=== PATIENT | male | born 1980 | race Caucasian/White ===

== ENCOUNTER 2017-12-05 21:29 | Emergency (ER) | payer MEDICAID ==
[~2017-12-05] VITALS: Ht 172.7 cm; Wt 62.1 kg
[~2017-12-05 21:29] MED LIST: ALPR-624 PO; OMEP40CA37 PO; ONDA4TAB6 PO
[2017-12-05 21:47] VITALS: BP 115/79
[2017-12-05] MEDS ORDERED: CYCL-1 PO (23:35)
[2017-12-05] MEDS ORDERED: ketorolac trometh inj. 60 MG/2 ML VIAL IM ONE (23:45)
== END 2017-12-05 23:49 | disposition home or self-care (01) ==
LOC: ER 21:30
DX: S39.012A Strain of muscle, fascia and tendon of lower back, initial encounter (principal); K21.9 Gastro-esophageal reflux disease without esophagitis; Z88.6 Allergy status to analgesic agent; Z88.5 Allergy status to narcotic agent; Z79.899 Other long term (current) drug therapy; W10.9XXA Fall (on) (from) unspecified stairs and steps, initial encounter; Y93.89 Activity, other specified; Y92.89 Other specified places as the place of occurrence of the external cause; Y99.8 Other external cause status
CPT/HCPCS: 96372; 99283; J1885

== ENCOUNTER 2018-02-01 23:09 | Emergency (ER) | payer MEDICAID ==
[~2018-02-01] VITALS: Ht 175.3 cm; Wt 60.9 kg
[~2018-02-01 23:09] MED LIST changes: +CYCL-1 PO
[2018-02-01 23:31] VITALS: BP 117/81
[2018-02-02] MEDS ORDERED: acetaminophen 325mg tablet PO ONE (00:55)
[2018-02-02] MEDS ORDERED: HYDR-569 PO (00:56)
== END 2018-02-02 01:10 | disposition home or self-care (01) ==
LOC: ER 23:11
DX: S63.650A Sprain of metacarpophalangeal joint of right index finger, initial encounter (principal); W19.XXXA Unspecified fall, initial encounter; Y93.89 Activity, other specified; Y92.89 Other specified places as the place of occurrence of the external cause; Y99.8 Other external cause status
CPT/HCPCS: 29130; 73140; 99284

== ENCOUNTER 2018-07-20 13:16 | Emergency (ER) | payer MEDICAID ==
[~2018-07-20] VITALS: Ht 175.3 cm; Wt 65.5 kg
[~2018-07-20 13:16] MED LIST changes: +HYDR-4383 PO
[2018-07-20 13:27] VITALS: BP 118/76
[2018-07-20] MEDS ORDERED: acetaminophen 325mg tablet PO ONE (14:00)
== END 2018-07-20 14:22 | disposition home or self-care (01) ==
LOC: ER 13:16
DX: S01.512A Laceration without foreign body of oral cavity, initial encounter (principal); K21.9 Gastro-esophageal reflux disease without esophagitis; Z88.5 Allergy status to narcotic agent; Z79.899 Other long term (current) drug therapy; X58.XXXA Exposure to other specified factors, initial encounter; Y93.89 Activity, other specified; Y92.89 Other specified places as the place of occurrence of the external cause; Y99.9 Unspecified external cause status
CPT/HCPCS: 99282

== ENCOUNTER 2019-07-04 08:10 | Day surgery (SDC) | payer MEDICAID ==
[2019-06-28 15:33] LABS: BASOPHILS % (AUTO) 0.5 % (0-1); EOSINOPHILS # (AUTO) 0.1 X10'3 (0-0.9); EOSINOPHILS % (AUTO) 1.2 % (0-6); LYMPHOCYTES % (AUTO) 39.6 % (21-51); MEAN CORPUSCULAR HEMOGLOBIN 28.1 PG (27.0-31.0); MEAN CORPUSCULAR HGB CONC 33.5 g/dL (33.0-36.5); MONOCYTES # (AUTO) 0.4 X10'3 (0-0.9); MONOCYTES % (AUTO) 8.6 % (2-12); NEUTROPHILS # (AUTO) 2.5 X10'3 (1.8-7.7); NEUTROPHILS % (AUTO) 50.1 % (42-75); PRE OP HEMATOCRIT 43.1 % (42.0-52.0); PRE OP HEMOGLOBIN 14.4 g/dL (14.0-17.9); PRE OP PLATELET COUNT 341 X10'3 (140-440); RED BLOOD COUNT 5.13 X10'6 (4.70-6.10); RED CELL DISTRIBUTION WIDTH 13.5 % (11.5-14.5)
[2019-06-28 15:55] LABS: ALBUMIN 4.3 G/DL (3.4-5.0); ALKALINE PHOSPHATASE 67 IU/L (46-116); BLOOD UREA NITROGEN 9 MG/DL (7-18); BUN/CREATININE RATIO 10.2 (5.4-32.0); CALCIUM 9.5 MG/DL (8.5-10.1); CHLORIDE 102 MMOL/L (99-107); CREATININE 0.88 MG/DL (0.60-1.10); PRE OP ALT 18 U/L (30-65); PRE OP ANION GAP 8 (8-16); PRE OP AST 14 U/L (10-37); PRE OP BILIRUB, TOTAL 1.2 MG/DL (0.0-1.0); PRE OP GLUCOSE 91 MG/DL (70-104); PRE OP POTASSIUM 3.5 MMOL/L (3.4-5.1); PRE OP SODIUM 140 MMOL/L (135-145); TOTAL PROTEIN 8.7 G/DL (6.4-8.2); eGFR > 90 ML/MIN
[2019-07-04] VITALS (15 sets, daily range): BP systolic 110–125; BP diastolic 60–89
[~2019-07-04] VITALS: Ht 172.7 cm; Wt 62.0 kg
[~2019-07-04 08:10] MED LIST changes: -ALPR-624 PO; +BUPIVAcaine/PF 2.5mg/ml (0.25%) 10ml vial ONE; -CYCL-1 PO; +FLUO-1 PO; -HYDR-4383 PO; -OMEP40CA37 PO; -ONDA4TAB6 PO; +RANI150T8 PO; +ceFAZolin/D5W- 1GM premix 50 ML IV ONE; +famotidine 10mg tablet PO ONE; +ringers solution, lacted 1,000 ML IV SCH
[2019-07-04] MEDS ORDERED: LIDOcaine 0.5% (5mg/ml) 50ml vial ONE (10:29)
[2019-07-04] MEDS ORDERED: midazolam 2 mg/2 ml injection ONE (10:30)
[2019-07-04] MEDS ORDERED: fentaNYL/PF 50MCG/1 ML 2ML syringe ONE ×2 (10:30→10:45)
[2019-07-04] MEDS ORDERED: ceFAZolin 1000mg inj ONE (10:54)
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
== END 2019-07-04 13:18 | disposition home or self-care (01) ==
LOC: PAS 08:10
PROVIDERS: ATTEND Orthopaedic Surgery Hand Surgery
DX: M25.341 Other instability, right hand (principal); F41.9 Anxiety disorder, unspecified; Z98.890 Other specified postprocedural states; Z87.442 Personal history of urinary calculi; Z88.5 Allergy status to narcotic agent; Z79.899 Other long term (current) drug therapy
CPT/HCPCS: 26437; 26520; 36415; 80053; 82948; 85025; J0690; J2001; J2250; J3010; J3490; A4215; J7120

== ENCOUNTER 2019-12-11 09:51 | Emergency (ER) | payer MEDICAID ==
[~2019-12-11] VITALS: Ht 177.8 cm; Wt 62.7 kg
[~2019-12-11 09:51] MED LIST changes: -BUPIVAcaine/PF 2.5mg/ml (0.25%) 10ml vial ONE; -ceFAZolin/D5W- 1GM premix 50 ML IV ONE; -famotidine 10mg tablet PO ONE; -ringers solution, lacted 1,000 ML IV SCH
[2019-12-11] MEDS ORDERED: morphine 4 MG/ML inj SYRINge IV ONE (10:15)
[2019-12-11] MEDS ORDERED: normal saline 1000ML IV soln IVB ONE (10:15)
[2019-12-11] MEDS ORDERED: ondansetron/PF 4mg/2ml inj IV ONE (10:15)
[2019-12-11] MEDS ORDERED: iohexol 300mg/ml 100ml inj. ONE (10:21)
[2019-12-11 10:41] LABS: BASOPHILS % (AUTO) 0.5 % (0-1); EOSINOPHILS # (AUTO) 0.2 X10'3 (0-0.9); HEMATOCRIT 43.3 % (42.0-52.0); HEMOGLOBIN 14.4 g/dl (14.0-17.9); LYMPHOCYTES # (AUTO) 2.2 X10'3 (1.1-4.8); LYMPHOCYTES % (AUTO) 38.4 % (21-51); MEAN CORPUSCULAR HEMOGLOBIN 27.9 PG (27.0-31.0); MEAN CORPUSCULAR HGB CONC 33.4 g/dL (33.0-36.5); MEAN CORPUSCULAR VOLUME 83.6 FL (78-98); MEAN PLATELET VOLUME 7.6 FL (7.4-10.4); MONOCYTES # (AUTO) 0.4 X10'3 (0-0.9); MONOCYTES % (AUTO) 7.8 % (2-12); NEUTROPHILS # (AUTO) 2.8 X10'3 (1.8-7.7); NEUTROPHILS % (AUTO) 50.3 % (42-75); PLATELET COUNT 297 X10'3 (140-440); RED BLOOD COUNT 5.18 X10'6 (4.70-6.10); RED CELL DISTRIBUTION WIDTH 14.1 % (11.5-14.5); WHITE BLOOD COUNT 5.6 X10'3 (4.5-11.0)
[2019-12-11 10:50] LABS: PARTIAL THROMBOPLASTIN TIME 24 SECONDS (22-32)
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
[2019-12-11 10:54] LABS: ALANINE AMINOTRANSFERASE 10 U/L (12-78); ALKALINE PHOSPHATASE 66 IU/L (46-116); ANION GAP 9 (8-16); ASPARTATE AMINO TRANSFERASE 14 U/L (10-37); BILIRUBIN,TOTAL 1.5 MG/DL (0.1-1.0); BLOOD UREA NITROGEN 14 MG/DL (7-18); BUN/CREATININE RATIO 12.4 (5.4-32.0); CALCIUM 9.2 MG/DL (8.5-10.1); CHLORIDE 104 MMOL/L (99-107); CREATININE 1.13 MG/DL (0.60-1.10); GLUCOSE 115 MG/DL (70-104); POTASSIUM 3.6 MMOL/L (3.5-5.1); SODIUM 141 MMOL/L (135-145); TOTAL CARBON DIOXIDE 27.8 MMOL/L (24-32); TOTAL PROTEIN 8.2 G/DL (6.4-8.2); eGFR 72 ML/MIN
[2019-12-11] MEDS ORDERED: ketorolac trometh. 30mg/ml inj. IV ONE (11:15)
[2019-12-11 11:33] LABS: CLARITY,URINE SLIGHTLY CLOUDY (Clear); COLOR,URINE YELLOW (Yellow); GLUCOSE, URINE NEGATIVE (Neg); KETONES,URINE NEGATIVE (Neg); LEUKOCYTE ESTERASE ,URINE NEGATIVE (Neg); NITRITES, URINE NEGATIVE (Neg); OCCULT BLOOD,URINE LARGE (Neg); PROTEIN,URINE TRACE mg/dl (Neg)
[2019-12-11 11:37] LABS: UA COLLECTION TYPE URINAL
[2019-12-11 11:41] LABS: MUCUS STRANDS MANY /LPF (Neg)
[2019-12-11 11:43] LABS: SQUAMOUS EPITHELIAL CELL,UR FEW /LPF (FEW)
[2019-12-11 11:45] LABS: RBC,URINE TNTC /HPF (0-2)
[2019-12-11 11:47] LABS: BACTERIA,URINE FEW /HPF (Neg); CAL OXALATE CRYSTALS FEW /HPF (NEGATIVE)
[2019-12-11] MEDS ORDERED: FLO0.4C PO (12:04)
[2019-12-11] MEDS ORDERED: ONDA4TAB6 PO (12:04)
[2019-12-11] MEDS ORDERED: IBUP-1984 PO (12:04)
[2019-12-11] MEDS ORDERED: DOXY-135 PO (12:04)
[2019-12-11] MEDS ORDERED: HYDR-4353 PO (12:06)
[2019-12-11 13:04] VITALS: BP 116/73
== END 2019-12-11 13:08 | disposition home or self-care (01) ==
LOC: ER 09:52
DX: N20.0 Calculus of kidney (principal); N39.0 Urinary tract infection, site not specified; R11.10 Vomiting, unspecified; K21.9 Gastro-esophageal reflux disease without esophagitis; F41.9 Anxiety disorder, unspecified; Z88.5 Allergy status to narcotic agent; Z79.899 Other long term (current) drug therapy
CPT/HCPCS: 36415; 74177; 80053; 81001; 85025; 85610; 85730; 87088; 96361; 96374; 96375; 99285; J1885; J2270; J2405; J7030; Q9967

== ENCOUNTER 2020-11-29 03:45 | Emergency (ER) | payer MEDICAID ==
[~2020-11-29] VITALS: Ht 175.3 cm; Wt 64.1 kg
[~2020-11-29 03:45] MED LIST changes: +ONDA4TAB6 PO
[2020-11-29] MEDS ORDERED: ketorolac trometh. 30mg/ml inj. IV ONE (04:05)
[2020-11-29] MEDS ORDERED: ondansetron/PF 4mg/2ml inj IV ONE (04:05)
[2020-11-29 04:12] LABS: BASOPHILS % (AUTO) 0.5 % (0-1); EOSINOPHILS # (AUTO) 0.2 X10'3 (0-0.9); EOSINOPHILS % (AUTO) 3.1 % (0-6); HEMATOCRIT 42.9 % (42.0-52.0); HEMOGLOBIN 14.3 g/dl (14.0-17.9); LYMPHOCYTES # (AUTO) 3.3 X10'3 (1.1-4.8); LYMPHOCYTES % (AUTO) 51.2 % (21-51); MEAN CORPUSCULAR HEMOGLOBIN 28.3 PG (27.0-31.0); MEAN CORPUSCULAR HGB CONC 33.2 g/dL (33.0-36.5); MEAN PLATELET VOLUME 7.7 FL (7.4-10.4); MONOCYTES # (AUTO) 0.7 X10'3 (0-0.9); MONOCYTES % (AUTO) 10.2 % (2-12); NEUTROPHILS # (AUTO) 2.3 X10'3 (1.8-7.7); PLATELET COUNT 287 X10'3 (140-440); RED BLOOD COUNT 5.05 X10'6 (4.70-6.10); RED CELL DISTRIBUTION WIDTH 13.6 % (11.5-14.5); WHITE BLOOD COUNT 6.5 X10'3 (4.5-11.0)
[2020-11-29 04:22] LABS: ALANINE AMINOTRANSFERASE 14 U/L (12-78); ALBUMIN 3.7 G/DL (3.4-5.0); ALBUMIN/GLOBULIN RATIO 0.9 (1.1-1.5); ALKALINE PHOSPHATASE 62 IU/L (46-116); ANION GAP 10 (8-16); ASPARTATE AMINO TRANSFERASE 16 U/L (10-37); BILIRUBIN,TOTAL 1.2 MG/DL (0.1-1.0); BLOOD UREA NITROGEN 19 MG/DL (7-18); BUN/CREATININE RATIO 17.9 (5.4-32.0); CALCIUM 8.8 MG/DL (8.5-10.1); CHLORIDE 105 MMOL/L (99-107); CREATININE 1.06 MG/DL (0.60-1.10); GLUCOSE 110 MG/DL (70-104); LIPASE 111 U/L (73-393); POTASSIUM 3.7 MMOL/L (3.5-5.1); SODIUM 142 MMOL/L (135-145); TOTAL CARBON DIOXIDE 26.8 MMOL/L (24-32); TOTAL PROTEIN 7.9 G/DL (6.4-8.2); eGFR 77 ML/MIN
[2020-11-29 05:08] VITALS: BP 129/81
[2020-11-29 05:25] LABS: TOTAL CELLS COUNTED 100
[2020-11-29 05:26] LABS: PLATELET ESTIMATE NORMAL
[2020-11-29] MEDS ORDERED: ONDA4TAB6 PO (05:31)
[2020-11-29] MEDS ORDERED: MELO-100 PO (05:31)
[2020-11-29] MEDS ORDERED: FLO0.4C PO (05:31)
[2020-11-29] MEDS ORDERED: HYDR-3965 PO (05:31)
[2020-11-29 06:15] LABS: CLARITY,URINE CLOUDY (Clear); COLOR,URINE YELLOW (Yellow); GLUCOSE, URINE NEGATIVE (Neg); KETONES,URINE NEGATIVE (Neg); LEUKOCYTE ESTERASE ,URINE NEGATIVE (Neg); NITRITES, URINE NEGATIVE (Neg); OCCULT BLOOD,URINE LARGE (Neg); PH,URINE 5.5 (4.8-8.0); PROTEIN,URINE 100 mg/dl (Neg)
[2020-11-29 06:16] LABS: UA COLLECTION TYPE URINAL
[2020-11-29 06:24] LABS: BACTERIA,URINE FEW /HPF (Neg); MUCUS STRANDS FEW /LPF (Neg); RBC,URINE TNTC /HPF (0-2); SQUAMOUS EPITHELIAL CELL,UR FEW /LPF (FEW)
== END 2020-11-29 06:16 | disposition home or self-care (01) ==
LOC: ER 03:46
DX: N20.0 Calculus of kidney (principal); R10.32 Left lower quadrant pain; K21.9 Gastro-esophageal reflux disease without esophagitis; F41.9 Anxiety disorder, unspecified; Z87.442 Personal history of urinary calculi; Z98.890 Other specified postprocedural states; Z88.8 Allergy status to other drugs, medicaments and biological substances; Z79.899 Other long term (current) drug therapy
CPT/HCPCS: 36415; 74176; 80053; 81001; 83690; 85007; 85025; 87088; 96374; 96375; 99284; J1885; J2405

== ENCOUNTER 2020-11-30 12:43 | Emergency (ER) | payer MEDICAID ==
[~2020-11-30 12:43] MED LIST changes: +FLO0.4C PO; +HYDR-3965 PO; +MELO-100 PO
--- NOTE | 2020-11-30 13:40 | NUR ---
PER REGISTRATION PT LEFT BEFORE TRIAGE.
== END 2020-11-30 17:13 | disposition left against medical advice (07) ==
LOC: ER 12:43
DX: Z53.21 Procedure and treatment not carried out due to patient leaving prior to being seen by health care provider (principal)

== ENCOUNTER 2021-01-19 15:12 | Emergency (ER) | payer MEDICAID ==
[~2021-01-19] VITALS: Ht 175.3 cm; Wt 63.4 kg
[~2021-01-19 15:12] MED LIST changes: -FLO0.4C PO; -HYDR-3965 PO
[2021-01-19 15:56] LABS: CLARITY,URINE CLOUDY (Clear); COLOR,URINE YELLOW (Yellow); GLUCOSE, URINE NEGATIVE (Neg); KETONES,URINE NEGATIVE (Neg); LEUKOCYTE ESTERASE ,URINE NEGATIVE (Neg); NITRITES, URINE NEGATIVE (Neg); OCCULT BLOOD,URINE NEGATIVE (Neg); PROTEIN,URINE NEGATIVE (Neg); UROBILINOGEN,URINE 0.2 E.U/dL (0.2-1.0)
[2021-01-19 16:00] LABS: UA COLLECTION TYPE NON-SPECIFIED
[2021-01-19 16:03] LABS: BASOPHILS % (AUTO) 0.4 % (0-1); EOSINOPHILS % (AUTO) 0.9 % (0-6); HEMATOCRIT 44.7 % (42.0-52.0); HEMOGLOBIN 15.1 g/dl (14.0-17.9); LYMPHOCYTES # (AUTO) 1.7 X10'3 (1.1-4.8); MEAN CORPUSCULAR HEMOGLOBIN 28.2 PG (27.0-31.0); MEAN CORPUSCULAR HGB CONC 33.7 g/dL (33.0-36.5); MEAN CORPUSCULAR VOLUME 83.6 FL (78-98); MEAN PLATELET VOLUME 7.9 FL (7.4-10.4); MONOCYTES # (AUTO) 0.5 X10'3 (0-0.9); MONOCYTES % (AUTO) 9.8 % (2-12); NEUTROPHILS # (AUTO) 2.8 X10'3 (1.8-7.7); NEUTROPHILS % (AUTO) 54.9 % (42-75); PLATELET COUNT 321 X10'3 (140-440); RED BLOOD COUNT 5.35 X10'6 (4.70-6.10); RED CELL DISTRIBUTION WIDTH 13.5 % (11.5-14.5); WHITE BLOOD COUNT 5.1 X10'3 (4.5-11.0)
[2021-01-19 16:04] LABS: AMORPHOUS PHOSPHATES 3+; SQUAMOUS EPITHELIAL CELL,UR FEW /LPF (FEW)
[2021-01-19 16:04] LABS: ANION GAP 8 (8-16); BLOOD UREA NITROGEN 9 MG/DL (7-18); BUN/CREATININE RATIO 8.7 (5.4-32.0); CALCIUM 9.1 MG/DL (8.5-10.1); CHLORIDE 103 MMOL/L (99-107); CREATININE 1.03 MG/DL (0.60-1.10); GLUCOSE 93 MG/DL (70-104); SODIUM 140 MMOL/L (135-145); eGFR 80 ML/MIN
[2021-01-19 16:06] LABS: BACTERIA,URINE NONE SEEN /HPF (Neg); RBC,URINE NONE SEEN /HPF (0-2); WBC,URINE 0-4 /HPF (0-4)
[2021-01-19] MEDS ORDERED: ketorolac tromethamine 15mg/ml inj. IM ONE (17:10)
--- NOTE | 2021-01-19 17:11 | NUR ---
received patient in bed 2.
[2021-01-19] MEDS ORDERED: FLO0.4C PO (17:19)
[2021-01-19] MEDS ORDERED: IBUP-1986 PO (17:19)
[2021-01-19] MEDS ORDERED: OXYC-145 PO (17:19)
[2021-01-19 17:29] VITALS: BP 108/77
== END 2021-01-19 17:50 | disposition home or self-care (01) ==
LOC: ER 15:14
DX: N20.0 Calculus of kidney (principal); F41.9 Anxiety disorder, unspecified; Z88.5 Allergy status to narcotic agent; Z79.899 Other long term (current) drug therapy
CPT/HCPCS: 36415; 74176; 80048; 81001; 85025; 93005; 96372; 99285; J1885

== ENCOUNTER 2021-05-09 20:25 | Emergency (ER) | payer MEDICAID ==
[~2021-05-09] VITALS: Ht 175.3 cm; Wt 65.9 kg
[~2021-05-09 20:25] MED LIST changes: +IBUP-1986 PO; +OXYC-145 PO
[2021-05-09 21:00] LABS: BASOPHILS # (AUTO) 0.1 X10'3 (0-0.2); BASOPHILS % (AUTO) 0.8 % (0-1); EOSINOPHILS # (AUTO) 0.2 X10'3 (0-0.9); EOSINOPHILS % (AUTO) 2.2 % (0-6); HEMATOCRIT 44.9 % (42.0-52.0); HEMOGLOBIN 15.1 g/dl (14.0-17.9); LYMPHOCYTES # (AUTO) 2.8 X10'3 (1.1-4.8); LYMPHOCYTES % (AUTO) 38.5 % (21-51); MEAN CORPUSCULAR HEMOGLOBIN 28.4 PG (27.0-31.0); MEAN CORPUSCULAR HGB CONC 33.7 g/dL (33.0-36.5); MEAN CORPUSCULAR VOLUME 84.3 FL (78-98); MEAN PLATELET VOLUME 7.5 FL (7.4-10.4); MONOCYTES # (AUTO) 0.6 X10'3 (0-0.9); MONOCYTES % (AUTO) 8.6 % (2-12); NEUTROPHILS # (AUTO) 3.6 X10'3 (1.8-7.7); NEUTROPHILS % (AUTO) 49.9 % (42-75); PLATELET COUNT 333 X10'3 (140-440); RED BLOOD COUNT 5.33 X10'6 (4.70-6.10); RED CELL DISTRIBUTION WIDTH 13.4 % (11.5-14.5); WHITE BLOOD COUNT 7.3 X10'3 (4.5-11.0)
[2021-05-09 21:03] LABS: UA COLLECTION TYPE CLN CATCH MIDSTREAM
[2021-05-09 21:04] LABS: CLARITY,URINE CLEAR (Clear); COLOR,URINE YELLOW (Yellow); GLUCOSE, URINE NEGATIVE (Neg); KETONES,URINE NEGATIVE (Neg); LEUKOCYTE ESTERASE ,URINE NEGATIVE (Neg); NITRITES, URINE NEGATIVE (Neg); OCCULT BLOOD,URINE NEGATIVE (Neg); PROTEIN,URINE NEGATIVE (Neg); UROBILINOGEN,URINE 0.2 E.U/dL (0.2-1.0)
[2021-05-09 21:20] LABS: ALANINE AMINOTRANSFERASE 17 U/L (12-78); ALBUMIN 4.1 G/DL (3.4-5.0); ALBUMIN/GLOBULIN RATIO 0.9 (1.1-1.5); ALKALINE PHOSPHATASE 58 IU/L (46-116); ANION GAP 9 (8-16); ASPARTATE AMINO TRANSFERASE 15 U/L (10-37); BILIRUBIN,TOTAL 1.7 MG/DL (0.1-1.0); BLOOD UREA NITROGEN 17 MG/DL (7-18); BUN/CREATININE RATIO 16.3 (5.4-32.0); CALCIUM 9.4 MG/DL (8.5-10.1); CHLORIDE 103 MMOL/L (99-107); CREATININE 1.04 MG/DL (0.60-1.10); GLUCOSE 86 MG/DL (70-104); LIPASE 125 U/L (73-393); POTASSIUM 3.3 MMOL/L (3.5-5.1); SODIUM 140 MMOL/L (135-145); TOTAL CARBON DIOXIDE 28.3 MMOL/L (24-32); TOTAL PROTEIN 8.9 G/DL (6.4-8.2); eGFR 79 ML/MIN
[2021-05-09] MEDS ORDERED: ondansetron 4mg rapidly disintigrating tab PO ONE (23:25)
[2021-05-09] MEDS ORDERED: ketorolac trometh. 30mg/ml inj. IM ONE (23:25)
[2021-05-09] MEDS ORDERED: acetaminophen 325mg tablet PO ONE (23:25)
[2021-05-09 23:56] LABS: TROPONIN I < 0.04 NG/ML (0.0-0.05)
[2021-05-10] MEDS ORDERED: DICY10CA88 PO (01:34)
[2021-05-10] MEDS ORDERED: FAMO-128 PO (01:34)
[2021-05-10 01:45] VITALS: BP 112/82
== END 2021-05-10 01:43 | disposition home or self-care (01) ==
LOC: ER 20:26
DX: R10.32 Left lower quadrant pain (principal); F41.9 Anxiety disorder, unspecified; R07.89 Other chest pain; R42 Dizziness and giddiness; R11.10 Vomiting, unspecified; K21.9 Gastro-esophageal reflux disease without esophagitis; Z87.442 Personal history of urinary calculi; Z98.890 Other specified postprocedural states; Z88.8 Allergy status to other drugs, medicaments and biological substances; Z79.899 Other long term (current) drug therapy
CPT/HCPCS: 36415; 80053; 81003; 83690; 84484; 85025; 96372; 99283; J1885

== ENCOUNTER 2022-06-09 14:19 | Emergency (ER) | payer MEDICAID ==
[~2022-06-09] VITALS: Ht 175.3 cm; Wt 62.4 kg
[~2022-06-09 14:19] MED LIST changes: +DICY10CA88 PO; +FAMO-128 PO
[2022-06-09 14:58] VITALS: BP 133/81
[2022-06-09 15:42] LABS: BASOPHILS % (AUTO) 0.4 % (0-1); EOSINOPHILS # (AUTO) 0.1 X10'3 (0-0.9); EOSINOPHILS % (AUTO) 1.1 % (0-6); HEMATOCRIT 43.6 % (42.0-52.0); HEMOGLOBIN 14.7 g/dl (14.0-17.9); LYMPHOCYTES # (AUTO) 1.9 X10'3 (1.1-4.8); LYMPHOCYTES % (AUTO) 29.2 % (21-51); MEAN CORPUSCULAR HEMOGLOBIN 28.3 PG (27.0-31.0); MEAN CORPUSCULAR HGB CONC 33.7 g/dL (33.0-36.5); MEAN CORPUSCULAR VOLUME 84.1 FL (78-98); MEAN PLATELET VOLUME 7.5 FL (7.4-10.4); MONOCYTES # (AUTO) 0.6 X10'3 (0-0.9); NEUTROPHILS % (AUTO) 60.3 % (42-75); PLATELET COUNT 315 X10'3 (140-440); RED BLOOD COUNT 5.18 X10'6 (4.70-6.10); RED CELL DISTRIBUTION WIDTH 13.4 % (11.5-14.5); WHITE BLOOD COUNT 6.6 X10'3 (4.5-11.0)
[2022-06-09 15:45] LABS: CLARITY,URINE CLEAR (Clear); GLUCOSE, URINE NEGATIVE (Neg); KETONES,URINE NEGATIVE (Neg); LEUKOCYTE ESTERASE ,URINE NEGATIVE (Neg); NITRITES, URINE NEGATIVE (Neg); OCCULT BLOOD,URINE TRACE-INTACT (Neg); PROTEIN,URINE NEGATIVE (Neg); UROBILINOGEN,URINE 0.2 E.U/dL (0.2-1.0)
[2022-06-09 15:47] LABS: COLOR,URINE STRAW (Yellow); UA COLLECTION TYPE CLN CATCH MIDSTREAM
[2022-06-09 15:51] LABS: ALANINE AMINOTRANSFERASE 36 U/L (12-78); ALBUMIN 4.1 G/DL (3.4-5.0); ALKALINE PHOSPHATASE 56 IU/L (46-116); ANION GAP 7 (8-16); ASPARTATE AMINO TRANSFERASE 59 U/L (10-37); BILIRUBIN,TOTAL 1.4 MG/DL (0.1-1.0); BLOOD UREA NITROGEN 16 MG/DL (7-18); CALCIUM 9.3 MG/DL (8.5-10.1); CHLORIDE 102 MMOL/L (99-107); CREATININE 0.94 MG/DL (0.60-1.10); GLUCOSE 99 MG/DL (70-104); LIPASE 213 U/L (73-393); SODIUM 139 MMOL/L (135-145); TOTAL CARBON DIOXIDE 29.9 MMOL/L (24-32); TOTAL PROTEIN 8.4 G/DL (6.4-8.2); eGFR 88 ML/MIN
[2022-06-09 15:52] LABS: BACTERIA,URINE NONE SEEN /HPF (Neg); MUCUS STRANDS NONE SEEN /LPF (Neg); RBC,URINE 0-2 /HPF (0-2); SQUAMOUS EPITHELIAL CELL,UR FEW /LPF (FEW); WBC,URINE 0-4 /HPF (0-4)
== END 2022-06-09 19:47 | disposition left against medical advice (07) ==
LOC: ER 14:19
DX: R10.9 Unspecified abdominal pain (principal); Z53.21 Procedure and treatment not carried out due to patient leaving prior to being seen by health care provider
CPT/HCPCS: 36415; 80053; 81001; 83690; 85025

== ENCOUNTER 2022-10-18 02:40 | Emergency (ER) | payer MEDICAID ==
[~2022-10-18] VITALS: Ht 177.8 cm; Wt 67.3 kg
[2022-10-18 03:00] VITALS: BP 135/80
== END 2022-10-18 05:13 | disposition home or self-care (01) ==
LOC: ER 02:40
DX: S60.152A Contusion of left little finger with damage to nail, initial encounter (principal); K21.9 Gastro-esophageal reflux disease without esophagitis; F41.9 Anxiety disorder, unspecified; Z87.442 Personal history of urinary calculi; Z98.890 Other specified postprocedural states; Z79.899 Other long term (current) drug therapy; W22.8XXA Striking against or struck by other objects, initial encounter; Y93.89 Activity, other specified; Y92.89 Other specified places as the place of occurrence of the external cause; Y99.8 Other external cause status
CPT/HCPCS: 73140; 99283

== ENCOUNTER 2022-12-26 16:13 | Emergency (ER) | payer MEDICAID ==
[~2022-12-26] VITALS: Ht 175.3 cm; Wt 64.5 kg
[2022-12-26 16:44] LABS: BASOPHILS % (AUTO) 0.5 % (0-1); EOSINOPHILS # (AUTO) 0.1 X10'3 (0-0.9); EOSINOPHILS % (AUTO) 1.5 % (0-6); HEMATOCRIT 41.3 % (42.0-52.0); HEMOGLOBIN 13.7 g/dl (14.0-17.9); LYMPHOCYTES # (AUTO) 2.3 X10'3 (1.1-4.8); LYMPHOCYTES % (AUTO) 34.7 % (21-51); MEAN CORPUSCULAR HEMOGLOBIN 27.7 PG (27.0-31.0); MEAN CORPUSCULAR HGB CONC 33.2 g/dL (33.0-36.5); MEAN CORPUSCULAR VOLUME 83.6 FL (78-98); MEAN PLATELET VOLUME 7.6 FL (7.4-10.4); MONOCYTES # (AUTO) 0.6 X10'3 (0-0.9); MONOCYTES % (AUTO) 9.7 % (2-12); NEUTROPHILS # (AUTO) 3.6 X10'3 (1.8-7.7); NEUTROPHILS % (AUTO) 53.6 % (42-75); PLATELET COUNT 278 X10'3 (140-440); RED BLOOD COUNT 4.95 X10'6 (4.70-6.10); RED CELL DISTRIBUTION WIDTH 13.5 % (11.5-14.5); WHITE BLOOD COUNT 6.6 X10'3 (4.5-11.0)
[2022-12-26 16:56] LABS: ALANINE AMINOTRANSFERASE 31 U/L (12-78); ALBUMIN 3.9 G/DL (3.4-5.0); ALBUMIN/GLOBULIN RATIO 1.1 (1.1-1.5); ALKALINE PHOSPHATASE 60 IU/L (46-116); ANION GAP 4 (8-16); ASPARTATE AMINO TRANSFERASE 37 U/L (10-37); BILIRUBIN,TOTAL 1.2 MG/DL (0.1-1.0); BLOOD UREA NITROGEN 11 MG/DL (7-18); BUN/CREATININE RATIO 11.6 (10.0-20.0); CALCIUM 8.9 MG/DL (8.5-10.1); CHLORIDE 105 MMOL/L (99-107); CREATININE 0.95 MG/DL (0.60-1.10); GLUCOSE 80 MG/DL (70-104); POTASSIUM 3.7 MMOL/L (3.5-5.1); SODIUM 138 MMOL/L (135-145); TOTAL CARBON DIOXIDE 28.9 MMOL/L (24-32); TOTAL PROTEIN 7.5 G/DL (6.4-8.2); eGFR 87 ML/MIN
[2022-12-26 18:37] VITALS: BP 122/89
== END 2022-12-26 18:38 | disposition home or self-care (01) ==
LOC: ER 16:14
DX: R07.89 Other chest pain (principal); F32.9 Major depressive disorder, single episode, unspecified; F41.9 Anxiety disorder, unspecified; K21.9 Gastro-esophageal reflux disease without esophagitis; Z87.442 Personal history of urinary calculi; Z98.890 Other specified postprocedural states; Z79.899 Other long term (current) drug therapy
CPT/HCPCS: 36415; 71045; 80053; 83880; 84484; 85025; 93005; 99285